=== PATIENT | female | born 1985 | race Caucasian/White ===

== ENCOUNTER 2019-07-15 09:10 | Emergency (ER) | payer OTHER ==
[~2019-07-15] VITALS: Ht 149.9 cm; Wt 54.4 kg
[~2019-07-15 09:10] MED LIST: FLAGYL500 MG PO; HYDROCODONE-AP1 EAC6 PO; IBUPROFEN 600600 M1 PO; LIDOCAINE VISC100 M1 SWISH&SPIT; NOHOMEMEDICATIONS; PENICILLIN V P500 MG PO; PHENERGAN 25 MG25 M1 PO; ULTRAM 50MG TAB50 MG PO
[2019-07-15] MEDS ORDERED: CLEOCIN HCL75 MG PO (09:19)
[2019-07-15] MEDS ORDERED: IBUPROFEN 800800 MG PO (09:50)
[2019-07-15] MEDS ORDERED: AUGMENTIN 500-1 EACH PO (09:50)
[2019-07-15] MEDS ORDERED: HYDROCODON-ACE1 EAC7 PO (09:50)
[2019-07-15 10:29] VITALS: BP 130/72
== END 2019-07-15 10:30 | disposition home or self-care (01) ==
LOC: M.ERS 09:10
DX: K08.89 Other specified disorders of teeth and supporting structures (principal); F31.9 Bipolar disorder, unspecified; F90.9 Attention-deficit hyperactivity disorder, unspecified type

== ENCOUNTER 2020-07-11 09:02 | Emergency (ER) | payer OTHER, MEDICAID ==
[~2020-07-11] VITALS: Ht 162.6 cm; Wt 63.5 kg
[~2020-07-11 09:02] MED LIST changes: +AUGMENTIN 500-1 EACH PO; +CLEOCIN HCL75 MG PO; +HYDROCODON-ACE1 EAC7 PO; +IBUPROFEN 800800 MG PO
[2020-07-11] MEDS ORDERED: PROZAC20 MG PO (09:15)
[2020-07-11 09:47] LABS: HEMATOCRIT 41.9 % (37.0-47.0); HEMOGLOBIN 14.3 gm/dL (12.0-15.0); MCH 31.4 pg (26.0-34.0); MCHC 34.2 g/dL (28.0-37.0); MCV 91.9 fL (80.0-100.0); MPV 9.4 fl. (7.2-11.1); RBC 4.56 mil/uL (4.20-5.00); RDW-CV 14.5 % (10.5-14.5); WBC 10.2 thou/uL (4.0-11.0)
[2020-07-11 09:53] LABS: CALCIUM 9.2 mg/dL (8.5-10.1); CREATININE 0.7 mg/dL (0.6-1.3); POTASSIUM 4.2 mmol/L (3.5-5.1)
[2020-07-11] MEDS ORDERED: ZOFRAN ODT4 MG DISSOLVE (10:09)
[2020-07-11 10:14] VITALS: BP 102/64
== END 2020-07-11 10:16 | disposition home or self-care (01) ==
LOC: M.ERS 09:02
PROVIDERS: Emergency Medicine Emergency Medical Services
DX: S06.0X0A Concussion without loss of consciousness, initial encounter (principal); R11.10 Vomiting, unspecified; Z79.899 Other long term (current) drug therapy; Z98.51 Tubal ligation status; V49.88XA Car occupant (driver) (passenger) injured in other specified transport accidents, initial encounter; Y93.89 Activity, other specified; Y92.413 State road as the place of occurrence of the external cause; Y99.9 Unspecified external cause status